=== PATIENT | female | born 1945 | race Caucasian/White ===

== ENCOUNTER 2022-04-15 17:38 | Emergency (ER) | payer MEDICARE, OTHER ==
[~2022-04-15 17:38] MED LIST: AMLODIPINE BESY10 MG PO; ATORVASTATIN CA20 MG PO; BENAZEPRIL HCL20 MG PO; BUSPAR 10MG10 MG PO; ELIQUIS 2.5 MG2.5 MG PO; ENOXAPARIN40 MG/0.4 SC; FUROSEMIDE40 MG PO; GLUCOPHAGE 500500 MG PO; HYDRALAZINE HC100 MG PO; INDERAL LA80 MG PO; K-DUR TAB 20 M20 MEQ PO; LORTAB 5-325 M1 EACH PO; LOTENSIN20 MG PO; NEURONTIN 300300 MG PO; NOVOLOG FL100 UNIT/1 INJ; PHENERGAN 25 MG25 M1 PO; RANITIDINE HCL150 M1 PO; TRESIBA FL100 UNIT/1 SQ; ULTRAM50 MG PO
[2022-04-15 18:38] LABS: HEMOGLOBIN 12.7 gm/dl (12.3-15.3); RED BLOOD COUNT 4.33 M/UL (4.00-5.10); WHITE BLOOD COUNT 11.6 K/UL (4.5-11.0)
[2022-04-15 19:09] LABS: BUN/CREATININE RATIO 29 (0-10)
== END 2022-04-15 20:15 | disposition home or self-care (01) ==
LOC: ER1 17:38
PROVIDERS: Family Medicine
DX: R94.31 Abnormal electrocardiogram [ECG] [EKG] (principal); E11.9 Type 2 diabetes mellitus without complications; I10 Essential (primary) hypertension
CPT/HCPCS: 80053; 82550; 82553; 84484; 85025; 93005; 99285